=== PATIENT | female | born 1960 | race Caucasian/White ===

== ENCOUNTER → 2023-10-19 06:48 | Outpatient (REF) | payer BC, SELFPAY | LOC: HWWDC 06:48 | PROVIDERS: ATTENDING PHYSICIAN Obstetrics & Gynecology; FAMILY PHYSICIAN Family Medicine | DX: Z12.31 Encounter for screening mammogram for malignant neoplasm of breast (principal) | CPT/HCPCS: 77063; 77067 ==

== ENCOUNTER → 2023-10-28 06:29 | Outpatient (REF) | payer BC, SELFPAY | LOC: HWRAD 06:29 | PROVIDERS: ATTENDING PHYSICIAN Family Medicine | DX: M79.674 Pain in right toe(s) (principal); S90.93 Unspecified superficial injury of toes | CPT/HCPCS: 73630 ==

== ENCOUNTER → 2024-10-31 16:10 | Outpatient (REF) | payer BC, SELFPAY | LOC: HWWDC 16:10 | PROVIDERS: ATTENDING PHYSICIAN Obstetrics & Gynecology; FAMILY PHYSICIAN Nurse Practitioner Family | DX: Z12.31 Encounter for screening mammogram for malignant neoplasm of breast (principal) | CPT/HCPCS: 77063; 77067 ==

== ENCOUNTER → 2025-05-10 15:13 | Outpatient (REF) | payer BC, SELFPAY | LOC: RAD 15:13 | PROVIDERS: ATTENDING PHYSICIAN Nurse Practitioner Family; FAMILY PHYSICIAN Nurse Practitioner Family | DX: M25.472 Effusion, left ankle (principal); M79.672 Pain in left foot | CPT/HCPCS: 73610; 73630 ==

== ENCOUNTER → 2025-06-01 08:06 | Outpatient (REF) | payer BC, SELFPAY | LOC: RCS 08:06 | PROVIDERS: ATTENDING PHYSICIAN Physician Assistant Medical | DX: R00.2 Palpitations (principal) | CPT/HCPCS: 93225; 93226 ==